=== PATIENT | male | born 2000 | race Hispanic/Latino ===

== ENCOUNTER 2024-07-18 12:48 | Emergency (ER) | payer MEDICAID ==
[2024-07-18 13:12] VITALS: RESP 18; TEMP 100; O2SAT 98
[2024-07-18 13:27] LABS: Absolute Neutrophil Ct (ANC) 8.09 x10^3/uL (1.78-5.38); BASOPHIL % 0.5 % (0.2-1.2); Basophil (Absolute #) 0.06 x10^3/uL (0.01-0.08); Eosinophil % 0.8 % (0.8-7.0); Eosinophil (Absolute #) 0.09 x10^3/uL (0.04-0.54); Hematocrit 44.9 % (40.1-51.0); Hemoglobin 14.4 g/dL (13.7-17.5); IMMATURE GRAN # 0.04 x10^3u/L (0.001-0.031); IMMATURE GRAN % 0.4 % (0.001-0.429); Lymphocyte (Absolute #) 2.05 x10^3/uL (1.32-3.57); Lymphocytes % 18.1 % (21.8-53.1); Mean Cell Volume 78.2 fL (79.0-92.2); Mean Corpuscular Hemoglobin 25.1 pg (25.7-32.2); Mean Corpuscular Hgb Concent. 32.1 g/dL (32.3-36.5); Monocyte (Absolute #) 1.01 x10^3/uL (0.30-0.82); Monocytes % 8.9 % (5.3-12.2); Neutrophil % 71.3 % (34.0-67.9); Platelet Count 286 x10^3/uL (163-337); Red Blood Count 5.74 x10^6/uL (4.63-6.08); Red Cell Distribution Width 14.2 % (11.6-14.4); White Blood Count 11.3 x10^3/uL (4.23-9.07)
[2024-07-18 13:40] LABS: ALBUMIN 4.6 g/dL (3.5-5.0); ANION GAP 15.7 MEQ/L (5-15); BILIRUBIN,TOTAL 0.7 mg/dL (0.2-1.3); Calcium 9.3 mg/dL (8.4-10.2); Creatinine 1 0.59 mg/dL (0.66-1.25); EST GLOMERULAR FILTRATION RATE 138.1 ML/MIN; Potassium 3.8 mmol/L (3.5-5.1); Total Protein 8.4 g/dL (6.3-8.2)
[2024-07-18] MEDS: XYLOCAINE 1%/Epi 1:100000 MDV 20 ML IJ ONE (13:55)
[2024-07-18] MEDS ORDERED: XYLOCAINE 1%/Epi 1:100000 MDV 20 ML ONE (13:57)
[2024-07-18 14:04] LABS: INFLUENZA A NEGATIVE (NEGATIVE); INFLUENZA B NEGATIVE (NEGATIVE); RESPIRATORY SYNCTIAL VIRUS NEGATIVE (NEGATIVE); SARS-CoV-2 Xpert Express NEGATIVE (NEGATIVE)
[2024-07-18 14:20] VITALS: BP 99/40; PULSE 80
[2024-07-18] MEDS ORDERED: BACTRIM DS TABLET PO ONE (14:25)
[2024-07-18] MEDS ORDERED: OXYCODONE-ACETAMINOPHEN 10-325 ONE (14:25)
--- NOTE | 2024-07-18 14:26 | ERPHSYRPT ---
- History of Present Illness Time Seen by Provider: 07/18/24 13:31 Source: patient Exam Limitations: no limitations Patient Subjective Stated Complaint: C/O back/spine pain that began on Tuesday. Denies falls, injury, trauma. Triage Nursing Assessment: Patient ambulated back to ER without difficulties. Patient's primary language is [place] and an interpretur had to be used during triage. He is alert and oriented. NO SOB. NO skin alterations noted to reported area of pain. Denies N/V. Skin is hot to touch; temp 100. JEFFERSON WNL. Physician History: 24-year-old [place] male presented in the ER with complaint of low back/tailbone area pain for the last 2 days. Patient denies any fall or trauma. Reports subjective feeling of fever and chills. Pain is moderate to severe sharp shooting, aggravated with sitting, movements and palpation. Denies any discharge. Patient reports he feels there is some swelling down there. Allergies/Adverse Reactions: No Known Drug Allergies Allergy (Verified 07/18/24 13:12) Hx Influenza Vaccination/Date Given: (unsure) Travel Risk - International Travel Have you traveled outside of the country in past 3 weeks: No - Emerging Infectious Disease Are you exhibiting symptoms associated with any current EIDs: No - Review of Systems Constitutional: Fever Respiratory: No Symptoms Cardiac: No Symptoms Abdominal/Gastrointestinal: No Symptoms Genitourinary Symptoms: No Symptoms Musculoskeletal: Back Pain Neurological: No Symptoms Endocrine: No Symptoms - Past Medical History Pertinent Past Medical History: No - Past Surgical History Past Surgical History: No - Social History Smoking Status: Never smoker Drug Use: none - Social Determinants of Health Will the patient participate in the screening: Declined to provide - Nursing Vital Signs Nursing Vital Signs: Initial Vital Signs Pulse Rate 80 07/18/24 13:00 Respiratory Rate 18 07/18/24 13:00 Blood Pressure 134/69 07/18/24 13:00 O2 Sat by Pulse Oximetry 98 07/18/24 13:00 Pain Scale Pain Intensity 9 - Physical Exam General Appearance: no apparent distress Eye Exam: PERRL/EOMI Neck Exam: normal inspection, full range of motion Respiratory Exam: normal breath sounds, lungs clear Cardiovascular Exam: regular rate/rhythm, normal heart sounds Gastrointestinal/Abdomen Exam: soft, normal bowel sounds, No tenderness Back Exam: normal range of motion, point tenderness (Just above the gluteal cleft on the left side 3 x 3 cm swelling with a agrawal. Positive fluctuation. Tenderness.) Extremity Exam: normal inspection, normal range of motion Neurologic Exam: alert, oriented x 3, cooperative Skin Exam: normal color SpO2 Interpretation: normal SpO2: 98 O2 Delivery: Room Air Procedures - Incision and Drainage Time of Procedure: 14:21 Timeout: Performed Site: gluteal cleft Anesthesia: 1% lidocaine w/epi cc's of anesthesia: 5 Blade Size: 11 I & D Procedure: betadine prep, culture obtained, gauze wick placed Results: large amount pus Ordered Tests: Active Orders 24 hr Category Date Time Status CBC W DIFF Stat Lab 07/18/24 13:26 Completed CMP Stat Lab 07/18/24 13:26 Completed CULTURE,WOUND Stat Lab 07/18/24 14:21 Received UA W/RFX UR CULTURE Stat Lab 07/18/24 13:15 Ordered Medication Summary Discontinued Medications Generic Name Dose Route Start Last Admin Trade Name Freq PRN Reason Stop Dose Admin Lidocaine/Epinephrine 5 ml 07/18/24 13:54 07/18/24 13:55 Lidocaine Hcl/Epinephrine 1% 20 Ml IJ 07/18/24 13:55 5 ml STAT ONE Administration Lidocaine/Epinephrine Confirm 07/18/24 13:57 Lidocaine Hcl/Epinephrine 1% 20 Ml Administered 07/18/24 13:58 Dose 5 ml .ROUTE .STK-MED ONE Oxycodone/Acetaminophen 1 tab 07/18/24 14:19 07/18/24 14:27 Oxycodone / Apap 10/325 Mg 1 Tablet PO 07/18/24 14:20 1 tab STAT STA Administration Oxycodone/Acetaminophen Confirm 07/18/24 14:25 Oxycodone / Apap 10/325 Mg 1 Tablet Administered 07/18/24 14:26 Dose 1 tab .ROUTE .STK-MED ONE Trimethoprim/Sulfamethoxazole 1 tab 07/18/24 14:19 07/18/24 14:27 Smz/Tmp Ds Tablet 1 Tablet PO 07/18/24 14:20 1 tab STAT STA Administration Trimethoprim/Sulfamethoxazole Confirm 07/18/24 14:25 Smz/Tmp Ds Tablet 1 Tablet Administered 07/18/24 14:26 Dose 1 tab PO .STK-MED ONE Lab/Rad Data: Laboratory Result Diagrams 07/18/24 13:26 07/18/24 13:26 Laboratory Results 07/18/24 07/18/24 07/18/24 Range/Units 13:26 13:26 13:26 WBC 11.3 H (4.23-9.07) x10^3/uL RBC 5.74 (4.63-6.08) x10^6/uL Hgb 14.4 (13.7-17.5) g/dL Hct 44.9 (40.1-51.0) % MCV 78.2 L (79.0-92.2) fL MCH 25.1 L (25.7-32.2) pg MCHC 32.1 L (32.3-36.5) g/dL RDW 14.2 (11.6-14.4) % Plt Count 286 (163-337) x10^3/uL MPV 10.0 (9.4-12.4) fL Gran % 71.3 H (34.0-67.9) % Immature Gran % (Auto) 0.4 (0.001-0.429) % Nucleat RBC Rel Count 0.0 (0.00-0.2) % Eos # (Auto) 0.09 (0.04-0.54) x10^3/uL Immature Gran # (Auto) 0.04 H (0.001-0.031) x10^3u/L Absolute Lymphs (auto) 2.05 (1.32-3.57) x10^3/uL Absolute Monos (auto) 1.01 H (0.30-0.82) x10^3/uL Absolute Nucleated RBC 0.00 (0.00-0.012) x10^3u/L Lymphocytes % 18.1 L (21.8-53.1) % Monocytes % 8.9 (5.3-12.2) % Eosinophils % 0.8 (0.8-7.0) % Basophils % 0.5 (0.2-1.2) % Absolute Granulocytes 8.09 H (1.78-5.38) x10^3/uL Basophils # 0.06 (0.01-0.08) x10^3/uL Sodium 140 (135-145) mmol/L Potassium 3.8 (3.5-5.1) mmol/L Chloride 103 (98-107) mmol/L Carbon Dioxide 24 (22-30) mmol/L Anion Gap 15.7 H (5-15) MEQ/L BUN 15 (9-20) mg/dL Creatinine 0.59 L (0.66-1.25) mg/dL Estimated GFR 138.1 ML/MIN Glucose 96 (74-106) mg/dL Calcium 9.3 (8.4-10.2) mg/dL Total Bilirubin 0.70 (0.2-1.3) mg/dL AST 44 (17-59) U/L ALT 57 H (0-50) U/L Alkaline Phosphatase 115 (38-126) U/L Serum Total Protein 8.4 H (6.3-8.2) g/dL Albumin 4.6 (3.5-5.0) g/dL Influenza Type A Ag NEGATIVE (NEGATIVE) Influenza Type B Ag NEGATIVE (NEGATIVE) RSV (PCR) NEGATIVE (NEGATIVE) SARS-CoV-2 (PCR) NEGATIVE (NEGATIVE) - Progress Progress: improved, pain not gone completely Progress Note: 07/18/24 14:22 24-year-old is evaluated in ER for swelling just above the gluteal cleft on the left with pain. Patient has positive fluctuation and tenderness. After informed consent I&D is done. Packing placed in. Patient is started on antibiotics. Recommended outpatient surgical follow-up. Discussed signs symptoms of worsening needing return to ER which he seems understanding. Stable for discharge. Complexity of problem addressed: Moderate acute Complexity of data reviewed/analyzed: Moderate Risk of complications/morbidity/mortality associated with current condition. Acute moderate. Counseled pt/family regarding: lab results, diagnosis, need for follow-up Medical Desision Making - Diagnostic Testing Diagnostic test were ordered, analyzed, and reviewed by me: Yes - Risk of complications The pt has a mod risk of morbidity or mortality based on: Need for prescription drug management, Need for minor surgical intervention in patient with know risk factors - Departure Departure Disposition: Home Clinical Impression: Pilonidal abscess Condition: Stable Critical Care Time: No Referrals: DOCTOR,NO FAMILY [Primary Care Provider] - Follow up with PCP 1 day JOAO WHITMAN MD [ACTIVE STAFF] - Follow up/PCP as directed (Call for appointment for reevaluation) JESSICA HUGHES [ACTIVE STAFF] - Follow up/PCP as directed (Call for appointment for reevaluation in 1 to 2 days) Instructions: Pilonidal cyst - Discharge instructions Additional Instructions: Sitz bath's. Dressing changes twice a day. Follow-up with primary care and general surgery for reevaluation. Return to ER for intractable pain/swelling/discharge/fever chills etc. Prescriptions: Hydrocodone/Acetaminophen [Hydrocodone-Acetamin 7.5-325] 1 each PO Q6HPRN PRN 3 Days #12 tablet MDD 4 PRN Reason: Pain Ibuprofen 600 mg PO Q6HPRN PRN 10 Days #30 tablet PRN Reason: Pain Smz/Tmp Ds Tablet [Bactrim Ds Tablet] 1 udtab PO BID #14 tablet
[2024-07-18] MEDS: OXYCODONE-ACETAMINOPHEN 10-325 PO STA (14:27)
[2024-07-18] MEDS: BACTRIM DS TABLET PO STA (14:27)
== END 2024-07-18 14:30 | disposition home or self-care (01) ==
LOC: ED 12:48
DX: L05.01 Pilonidal cyst with abscess (principal); M54.50 Low back pain, unspecified; Z79.891 Long term (current) use of opiate analgesic; Z79.899 Other long term (current) drug therapy
CPT/HCPCS: 0241U; 10080; 36415; 80053; 85025; 87070; 87077; 99283; A9270-GY